=== PATIENT | female | born 1940 | race Caucasian/White ===

== ENCOUNTER 2018-08-04 05:29 | Day surgery (SDC) | payer MEDICARE ==
[~2018-08-04] VITALS: Ht 162.6 cm; Wt 73.5 kg
--- NOTE | ~2018-08-04 | O ---
[facility] [place] [address] OPERATIVE REPORT Name: BRIGITTE LARSEN Room #: 150-2 [facility] M..#: [id number] Admission: 08/04/18 Attend Phys: Hill Emmanuel MD Discharge: Date of : 42 Report #: [id number] THIS REPORT FOR: //name// CC: Reyes Emmanuel DATE OF SERVICE: 08/04/2018 SURGEON: Hill Emmanuel MD. PREOPERATIVE DIAGNOSIS: Bilateral nasal lacrimal duct obstruction. POSTOPERATIVE DIAGNOSIS: Bilateral nasal lacrimal duct obstruction. OPERATION PERFORMED: Bilateral endoscopic dacryoplasty with silicone intubation. ANESTHESIA: General. COMPLICATIONS: None. INDICATIONS FOR SURGERY: This patient has acquired bilateral nasal lacrimal duct stenosis with chronic tearing and discharge, both eyes. The current procedures are undertaken in order to improve the patient's level of lacrimal outflow and visual clarity. Informed consent was obtained to include but not limited to the potential risks for damage to the eye, loss of vision, bleeding, infection, failure to improve the problem and need for further surgery. DESCRIPTION OF OPERATION: The patient was taken to the operating room, where general anesthesia was administered. The medial canthi were anesthetized with 2% Xylocaine with epinephrine mixed with equal parts of 0.75% Marcaine with Wydase. The lateral earl of the nose were then bilaterally injected with the same anesthetic mixture. The nose was packed with Afrin-soaked cottonoids. The patient was then prepped and draped in the usual sterile fashion. A moist compress was placed on the left eye while attention was turned to the right side. The superior and inferior puncta were then atraumatically dilated with a punctum dilator. A size 0 lacrimal probe was then passed through the superior canalicular system and through the stenosed nasal lacrimal duct. The nasal packing was removed and the endoscope was brought into the field. The inferior turbinate was gently infractured with a Goldthwaite periosteal elevator to allow [facility] [address] [place] [address] OPERATIVE REPORT Name: BRIGITTE LARSEN Room #: 150-2 [facility]..#: [id number] Admission: 08/04/18 Attend Phys: Hill Emmanuel MD Discharge: Date of : 42 Report #: [id number] visualization of the inferior meatus in the area of the opening of the valve of Hasner in the nose. The probe was found and confirmed to be in the proper location. It was removed and subsequently replaced with a size 1 and a size 2 Morales probe, which also had their passage confirmed endoscopically to be in the proper location. A 3 by 15 LacriCatheter was lubricated with a small quantity of ophthalmic antibiotic ointment. The LacriCatheter was then passed through the superior canalicular system and the stenosed nasal lacrimal duct. The LacriCatheter was confirmed to be in the proper location endoscopically intranasally in the inferior meatus. The LacriCatheter was inflated to 9 atmospheres for 90 seconds and deflated. The catheter was then inflated to 9 atmospheres for 60 seconds. The catheter was then withdrawn to the proximal black ring. It was then inflated to 9 atmospheres for 90 seconds. The balloon was then deflated and reinflated to 9 atmospheres for 60 seconds. The balloon was the aspirated and withdrawn to the distal black ring. It was then inflated to 9 atmospheres for 90 seconds. The balloon was deflated and reinflated to 9 atmospheres for 60 seconds. The balloon was then deflated and vigorously aspirated as it was withdrawn through the superior canalicular system. A Dodd tube was then passed through the superior canalicular system and out the dilated duct. The Dodd tube was secured under the inferior turbinate in the inferior meatus with a Dodd hook and retrieved endoscopically. The Dodd tube was then passed through the inferior canalicular system in a similar fashion and was retrieved endoscopically in the nose atraumatically. The Dodd tube was then secured to itself with 3 square throws and then to the lateral wall of the nose with a 5-0 Prolene suture. Attention was then turned to the other side, where the same procedure was performed. Antibiotic steroid drops were then placed in both eyes. A small quantity of ophthalmic antibiotic ointment was placed on the Dodd tube. The patient was then transported to the recovery area with no anesthetic or operative complications being noted. By: [id number] Hill Emmanuel MD /nt
[~2018-08-04 05:29] MED LIST: ASPIRIN81 M2 PO; CALCIUM 500 +1 EAC4; CENTRUM SILVER1 EAC4 PO; CLARITIN10 MG; ECHINACEA500 MG PO; FISH OIL 1,001000 M1; FISH OIL 1,001000 M2 PO; IBUPROFEN 200200 M1 PO; IBUPROFEN 600600 M1 PO; LIPITOR10 MG PO; LISINOPRIL-HCT1 EAC1; LOSARTAN-HCTZ1 EACH PO; MULTIVITAMINS1 EAC7; NORCO 5-325 TA1 EACH PO; OMEPRAZOLE 20 M20 M1 PO; VITAMIN B 6; VITAMINC500 PO; ZOCOR40 MG
[2018-08-04 08:30] VITALS: BP 162/66
== END 2018-08-04 11:05 | disposition home or self-care (01) ==
LOC: OR 05:29 → TBA 05:29 → OR 10:33
DX: H04.553 Acquired stenosis of bilateral nasolacrimal duct (principal); I10 Essential (primary) hypertension; E78.5 Hyperlipidemia, unspecified; K21.9 Gastro-esophageal reflux disease without esophagitis; Z90.710 Acquired absence of both cervix and uterus; Z98.890 Other specified postprocedural states; Z98.41 Cataract extraction status, right eye; Z98.42 Cataract extraction status, left eye; Z79.899 Other long term (current) drug therapy; Z88.8 Allergy status to other drugs, medicaments and biological substances; Z79.82 Long term (current) use of aspirin
CPT/HCPCS: 50010; 50101; 50261; 50386; 50398; 51777; 56528; 62110; 62900; 64037; 70005